=== PATIENT | female | born 1945 | race Caucasian/White ===

== ENCOUNTER 2017-09-05 12:41 | Outpatient (CLI) | payer MEDICARE ==
[~2017-09-05 12:41] MED LIST: ASPI-611 PO; COL100C PO; ESTR2TAB5 PO; GABA-530 PO; HYDR-3972 PO; LEVO75TA PO; MONT10TA21 PO; OMEP20CA4 PO; RAMI2.5C PO
[2017-09-05] MEDS ORDERED: iohexol 300mg/ml 100ml inj. ONE (13:24)
== END 2017-09-05 23:59 | disposition home or self-care (01) ==
LOC: 64 CT 12:41
PROVIDERS: ATTEND Thoracic Surgery (Cardiothoracic Vascular Surgery)
DX: J98.11 Atelectasis (principal); J90 Pleural effusion, not elsewhere classified; I10 Essential (primary) hypertension; J45.909 Unspecified asthma, uncomplicated; E11.9 Type 2 diabetes mellitus without complications
CPT/HCPCS: 71250; Q9967

== ENCOUNTER 2022-10-26 15:48 | Emergency (ER) | payer MEDICARE ==
[~2022-10-26] VITALS: Ht 175.3 cm; Wt 90.9 kg
[~2022-10-26 15:48] MED LIST changes: -RAMI2.5C PO; +RAMI2.5C54 PO
[2022-10-26 16:32] LABS: BASOPHILS % (AUTO) 0.5 % (0-1); EOSINOPHILS % (AUTO) 0.3 % (0-6); HEMATOCRIT 37.4 % (35.0-45.0); HEMOGLOBIN 12.6 g/dl (12.0-16.0); LYMPHOCYTES # (AUTO) 2.3 X10'3 (1.1-4.8); LYMPHOCYTES % (AUTO) 33.9 % (21-51); MEAN CORPUSCULAR HEMOGLOBIN 29.8 PG (27.0-31.0); MEAN CORPUSCULAR HGB CONC 33.7 g/dL (33.0-36.5); MEAN CORPUSCULAR VOLUME 88.5 FL (78-98); MEAN PLATELET VOLUME 8.4 FL (7.4-10.4); MONOCYTES # (AUTO) 0.5 X10'3 (0-0.9); MONOCYTES % (AUTO) 7.8 % (2-12); NEUTROPHILS % (AUTO) 57.5 % (42-75); PLATELET COUNT 307 X10'3 (140-440); RED BLOOD COUNT 4.22 X10'6 (4.20-5.60); RED CELL DISTRIBUTION WIDTH 14.5 % (11.5-14.5); WHITE BLOOD COUNT 6.9 X10'3 (4.5-11.0)
[2022-10-26] MEDS ORDERED: meclizine 12.5mg tablet PO ONE (16:40)
[2022-10-26 16:49] LABS: ALANINE AMINOTRANSFERASE 21 U/L (12-78); ALBUMIN 3.8 G/DL (3.4-5.0); ALBUMIN/GLOBULIN RATIO 0.9 (1.1-1.5); ALKALINE PHOSPHATASE 76 IU/L (46-116); ANION GAP 11 (8-16); ASPARTATE AMINO TRANSFERASE 17 U/L (10-37); BILIRUBIN,TOTAL 0.6 MG/DL (0.1-1.0); BLOOD UREA NITROGEN 17 MG/DL (7-18); BUN/CREATININE RATIO 20.7 (6.6-38.0); CALCIUM 9.7 MG/DL (8.5-10.1); CHLORIDE 102 MMOL/L (99-107); CREATININE 0.82 MG/DL (0.40-0.90); GLUCOSE 105 MG/DL (70-104); POTASSIUM 4.4 MMOL/L (3.5-5.1); SODIUM 138 MMOL/L (135-145); TOTAL CARBON DIOXIDE 25.4 MMOL/L (24-32); TOTAL PROTEIN 8.2 G/DL (6.4-8.2); eGFR 68 ML/MIN
[2022-10-26] MEDS ORDERED: ONDA4TAB12 PO (17:31)
[2022-10-26] MEDS ORDERED: MECL-226 PO (17:31)
[2022-10-26 18:13] VITALS: BP 134/69
== END 2022-10-26 20:52 | disposition home or self-care (01) ==
LOC: ER 15:48
DX: R00.2 Palpitations (principal); R42 Dizziness and giddiness; R11.0 Nausea; I48.91 Unspecified atrial fibrillation; G89.29 Other chronic pain; Z88.2 Allergy status to sulfonamides; Z88.1 Allergy status to other antibiotic agents; Z88.8 Allergy status to other drugs, medicaments and biological substances; Z79.82 Long term (current) use of aspirin; Z79.899 Other long term (current) drug therapy
CPT/HCPCS: 36415; 70450; 71045; 80053; 83880; 84484; 85025; 93005; 99285; J8597